=== PATIENT | female | born 1995 | race Caucasian/White ===

== ENCOUNTER 2024-01-25 02:00 | Emergency (ER) | payer MEDICAID ==
[~2024-01-25] VITALS: Ht 157.5 cm; Wt 52.0 kg
[2024-01-25 02:12] VITALS: BP 144/108; PULSE 87; RESP 20; O2SAT 98
== END 2024-01-25 04:24 | disposition left against medical advice (07) ==
LOC: ER 02:00
DX: S40.021A Contusion of right upper arm, initial encounter (principal); X58.XXXA Exposure to other specified factors, initial encounter; Y93.89 Activity, other specified; Y92.89 Other specified places as the place of occurrence of the external cause; Y99.8 Other external cause status

== ENCOUNTER 2024-06-28 13:58 | Inpatient (IN) | payer MEDICAID ==
[~2024-06-28] VITALS: Ht 157.5 cm; Wt 66.0 kg
[2024-06-28 14:52] LABS: Urine Bacteria None Seen /hpf (None Seen)
[2024-06-28 15:21] LABS: Urine Blood Negative /uL (Negative); Urine Clarity Ex.Turbid (Clear); Urine Color Dark-Orange (Yellow); Urine Mucus FEW (None Seen); Urine Protein, UAD 2+ (Negative); Urine Specific Gravity 1.036 (1.001-1.035); Urine Urobilinogen 12 mg/dL (Negative); Urine WBC 13 /hpf (0 - 5)
[2024-06-28 15:34] LABS: Basophils # (auto) 0 10 ^3/uL (0-0.2); Basophils % (auto) 0.2 % (0.0-2.0); Eosinophils # (auto) 0 10 ^3/uL (0-0.8); Hemoglobin 15.3 g/dL (12.2-16.2); Platelet Count (auto) 58 10^3/uL (140-450)
[2024-06-28 15:35] LABS: Hematocrit 44.3 % (36.0-46.0); Lymphocytes # (auto) 0.5 10 ^3/uL (0.4-5.4); Lymphocytes % (auto) 4.7 % (10.0-50.0); Mean Corpuscular Hemoglobin 41.2 pg (28.0-32.0); Mean Corpuscular Hgb Conc. 34.4 g/dL (32.0-36.0); Mean Corpuscular Volume 119.8 fL (80.0-100.0); Monocytes # (auto) 0.7 10 ^3/uL (0-1.3); Monocytes % (auto) 6.6 % (0.0-12.0); Neutrophils % (auto) 88.5 % (37.0-80.0); Nucleated Red Blood Cells % 0.2 %; Red Cell Distribution Width 14.5 % (11.8-14.3); White Blood Cell 11.3 10^3/uL (4.4-10.8)
[2024-06-28 15:52] LABS: Alanine Aminotransferase 93 U/L (7-40); Albumin 4.2 g/dL (3.2-4.8); Alkaline Phosphatase 253 U/L (46-116); Anion Gap 21 (5-15); Aspartate Aminotransferase 253 U/L (13-40); BUN/Creatinine Ratio 14.7 (10.0-20.0); Bilirubin, Total 4.2 mg/dL (0.2-1.0); Blood Urea Nitrogen 10 mg/dL (9-23); Calcium 9.3 mg/dL (8.7-10.4); Carbon Dioxide 17 mmol/L (20-31); Chloride 95 mmol/L (98-107); Glucose 111 mg/dL (74-106); Potassium 3.7 mmol/L (3.5-5.1); Sodium 133 mmol/L (136-145); Total Protein 7.3 g/dL (5.7-8.2)
[2024-06-28] MEDS: SODIUM CHLORIDE 0.9% 1,000 ML IV ONE (16:01)
[2024-06-28] MEDS: ONDANSETRON HCL 4 MG/2 ML VIAL IV ONE (16:05)
[2024-06-28 17:00] LABS: Macrocytosis Marked; Platelet Estimate Decreased; Stomatocytes Few
[2024-06-28] MEDS: cefTRIAXone 1GM/50ML D5W 50 ML IV ONE (18:12)
[2024-06-28 18:48] LABS: Urine Amorphous Crystal FEW /hpf (None Seen); Urine Bacteria FEW /hpf (None Seen); Urine Blood Negative /uL (Negative); Urine Clarity Turbid (Clear); Urine Color Orange (Yellow); Urine Mucus FEW (None Seen); Urine Protein, UAD 2+ (Negative); Urine Specific Gravity 1.035 (1.001-1.035); Urine Urobilinogen 8 mg/dL (Negative); Urine WBC 3 /hpf (0 - 5)
[2024-06-28 22:05] VITALS: PULSE 75; RESP 16; O2SAT 100
[2024-06-28] MEDS: LORazepam 2MG/ML-1ML VIAL IV SCH (22:15)
[2024-06-29] MEDS ORDERED: MORPHINE SULFATE INJ 2 MG/ml SYRG IV PRN
[2024-06-29] MEDS ORDERED: LORazepam 2MG/ML-1ML VIAL IV PRN (00:45)
[2024-06-29] MEDS ORDERED: FOLIC ACID 1 MG, MAGNESIUM SULF SDV 50% 8 MEQ, MULTIPLE VITAMIN 10 ML, THIAMINE INJ 100... INJ SCH ×2 (01:45→18:00)
[2024-06-29] MEDS: THIAMINE 100mg/ml INJ (200mg/2ml VIAL) IV ONE (01:52)
[2024-06-29] MEDS: LACTATED RINGER'S 1,000 ML IV SCH (01:52)
[2024-06-29 02:03] LABS: Amphetamine Screen, Urine Neg (NEGATIVE); Barbiturate Scree,Urine Neg (NEGATIVE); Benzodiazephine Screen, Urine Neg (NEGATIVE)
[2024-06-29 02:04] LABS: Cannabinoid Screen, Urine Pos (NEGATIVE); Cocaine Screen, Urine Neg (NEGATIVE); Opiate Scree,Urine Neg (NEGATIVE); Phencyclidine Screen, Urine Neg (NEGATIVE)
[2024-06-29 02:11] LABS: INR 1.37 (0.9-1.15); Partial Thromboplastin Time 25.4 SEC (24.5-34.5); Prothrombin Time 14.2 sec (9.3-11.8)
[2024-06-29 02:15] LABS: Triglycerides 111 mg/dL (< 150)
[2024-06-29 02:16] LABS: LDL Cholesterol 139 mg/dL (< 100); Magnesium 1.5 mg/dL (1.6-2.6)
[2024-06-29 02:17] LABS: Amylase 372 U/L (30-118); Blood Alcohol < 3.0 mg/dL (<10); Cholesterol 353 mg/dL (< 200); HDL Cholesterol 132 mg/dL (40-59)
[2024-06-29] MEDS: FOLIC ACID 1 MG in D5W 5% 50 ML INJ ONE (02:30)
[2024-06-29 03:03] LABS: Lipase 1958 U/L (12-53)
[2024-06-29 03:06] LABS: Folate (Folic Acid) 1.89 ng/mL (>5.38)
[2024-06-29 05:36] LABS: Basophils # (auto) 0 10 ^3/uL (0-0.2); Eosinophils # (auto) 0 10 ^3/uL (0-0.8); Monocytes # (auto) 0.5 10 ^3/uL (0-1.3); Neutrophils # (auto) 7.1 10 ^3/uL (1.6-8.6); Nucleated Red Blood Cells % 0.1 %
[2024-06-29 05:40] LABS: Basophils % (auto) 0.3 % (0.0-2.0); Hematocrit 39.2 % (36.0-46.0); Lymphocytes # (auto) 0.6 10 ^3/uL (0.4-5.4); Lymphocytes % (auto) 7.8 % (10.0-50.0); Mean Corpuscular Hemoglobin 42.5 pg (28.0-32.0); Mean Corpuscular Hgb Conc. 35.7 g/dL (32.0-36.0); Mean Corpuscular Volume 119.1 fL (80.0-100.0); Monocytes % (auto) 6.4 % (0.0-12.0); Neutrophils % (auto) 85.5 % (37.0-80.0); Platelet Count (auto) 34 10^3/uL (140-450); Red Blood Cells 3.29 10^6/uL (4.0-5.20); Red Cell Distribution Width 14.2 % (11.8-14.3); White Blood Cell 8.4 10^3/uL (4.4-10.8)
[2024-06-29 05:52] LABS: Alanine Aminotransferase 77 U/L (7-40); Alkaline Phosphatase 202 U/L (46-116); Anion Gap 13 (5-15); BUN/Creatinine Ratio 11.6 (10.0-20.0); Blood Urea Nitrogen 8 mg/dL (9-23); Calcium 8.6 mg/dL (8.7-10.4); Carbon Dioxide 23 mmol/L (20-31); Chloride 95 mmol/L (98-107); Glucose 130 mg/dL (74-106); Potassium 3.8 mmol/L (3.5-5.1); Sodium 131 mmol/L (136-145)
[2024-06-29 05:53] LABS: Albumin 3.9 g/dL (3.2-4.8); Aspartate Aminotransferase 204 U/L (13-40); Bilirubin, Total 5.2 mg/dL (0.2-1.0)
[2024-06-29 05:54] LABS: Total Protein 6.5 g/dL (5.7-8.2)
[2024-06-29] MEDS: ONDANSETRON HCL 4 MG/2 ML VIAL IV PRN (06:02)
[2024-06-29] MEDS: MORPHINE SULFATE INJ 2 MG/ml SYRG IV PRN (06:08)
[2024-06-29] MEDS: MAGNESIUM SULFATE 1GM/100ML 100 ML IV SCH (06:55)
[2024-06-29 08:33] VITALS: BP 127/101; PULSE 98; RESP 20; O2SAT 97
[2024-06-29 08:54] LABS: Macrocytosis Marked; Platelet Estimate Decreased
[2024-06-29] MEDS: FOLIC ACID 1 MG, MAGNESIUM SULF SDV 50% 8 MEQ, MULTIPLE VITAMIN 10 ML, THIAMINE INJ 100... INJ ONE (09:00)
[2024-06-29 09:26] LABS: Free T4 (Free Thyroxine) 1.1 ng/dL (0.89-1.76)
[2024-06-29 09:27] LABS: T3 Total 0.8 ng/mL (0.60-1.81)
[2024-06-29 11:05] LABS: Hepatitis B Surface Antigen Negative (Negative)
[2024-06-29 11:27] LABS: Hepatitis A Ab IgM Negative
[2024-06-29 11:28] LABS: Hepatitis B Core IgM Negative; Hepatitis C Antibody Negative (Negative)
[2024-06-29 12:30] VITALS: BP 134/98; PULSE 89; RESP 18; TEMP 98.3; O2SAT 99
[2024-06-29 14:10] LABS: Basophils # (auto) 0 10 ^3/uL (0-0.2); Basophils % (auto) 0.1 % (0.0-2.0); Eosinophils # (auto) 0 10 ^3/uL (0-0.8); Eosinophils % (auto) 0.3 % (0.0-7.0); Hematocrit 39.6 % (36.0-46.0); Hemoglobin 14.1 g/dL (12.2-16.2); Lymphocytes % (auto) 12.5 % (10.0-50.0); Mean Corpuscular Hemoglobin 42.1 pg (28.0-32.0); Mean Corpuscular Hgb Conc. 35.6 g/dL (32.0-36.0); Mean Corpuscular Volume 118.5 fL (80.0-100.0); Monocytes # (auto) 0.4 10 ^3/uL (0-1.3); Monocytes % (auto) 5.6 % (0.0-12.0); Neutrophils # (auto) 6.3 10 ^3/uL (1.6-8.6); Neutrophils % (auto) 81.5 % (37.0-80.0); Nucleated Red Blood Cells % 0.1 %; Red Blood Cells 3.34 10^6/uL (4.0-5.20); White Blood Cell 7.7 10^3/uL (4.4-10.8)
[2024-06-29 14:11] LABS: Platelet Count (auto) 36 10^3/uL (140-450)
[2024-06-29] MEDS ORDERED: chlordiazePOXIDE HCL 25 MG CAP PO PRN (19:00)
[2024-06-29 20:00] VITALS: PULSE 107; RESP 18; O2SAT 98
[2024-06-29 21:00] VITALS: BP 129/98; PULSE 107; RESP 18; TEMP 98.3; O2SAT 98
[2024-06-29] MEDS: SODIUM CHLORIDE 0.9% 1,000 ML IV ONE (22:15)
[2024-06-30] VITALS (8 sets, daily range): BP systolic 112–134; BP diastolic 81–96; PULSE 65–113; RESP 16–20; TEMP 98.1–99.2; O2SAT 96–100
[2024-06-30 08:18] LABS: Alanine Aminotransferase 80 U/L (7-40); Albumin 3.2 g/dL (3.2-4.8); Alkaline Phosphatase 203 U/L (46-116); Anion Gap 8 (5-15); Aspartate Aminotransferase 246 U/L (13-40); Calcium 8.2 mg/dL (8.7-10.4); Carbon Dioxide 24 mmol/L (20-31); Chloride 102 mmol/L (98-107); Glucose 106 mg/dL (74-106); Potassium 3.4 mmol/L (3.5-5.1); Sodium 134 mmol/L (136-145); Total Protein 5.5 g/dL (5.7-8.2)
[2024-06-30 08:19] LABS: BUN/Creatinine Ratio 9.6 (10.0-20.0); Blood Urea Nitrogen < 5 mg/dL (9-23)
[2024-06-30] MEDS ORDERED: LACTATED RINGER'S 1,000 ML IV SCH (08:45)
[2024-06-30 08:48] LABS: Lipase 352 U/L (12-53)
[2024-06-30 09:03] LABS: Basophils # (auto) 0 10 ^3/uL (0-0.2); Basophils % (auto) 0.1 % (0.0-2.0); Eosinophils # (auto) 0.1 10 ^3/uL (0-0.8); Eosinophils % (auto) 1.2 % (0.0-7.0); Hematocrit 34.6 % (36.0-46.0); Hemoglobin 12.3 g/dL (12.2-16.2); Lymphocytes # (auto) 0.8 10 ^3/uL (0.4-5.4); Lymphocytes % (auto) 12.6 % (10.0-50.0); Mean Corpuscular Hemoglobin 42.2 pg (28.0-32.0); Mean Corpuscular Hgb Conc. 35.6 g/dL (32.0-36.0); Mean Corpuscular Volume 118.5 fL (80.0-100.0); Monocytes # (auto) 0.4 10 ^3/uL (0-1.3); Monocytes % (auto) 7.1 % (0.0-12.0); Neutrophils # (auto) 4.8 10 ^3/uL (1.6-8.6); Nucleated Red Blood Cells % 0.3 %; Platelet Count (auto) 38 10^3/uL (140-450); Red Blood Cells 2.92 10^6/uL (4.0-5.20); Red Cell Distribution Width 14.1 % (11.8-14.3); White Blood Cell 6.1 10^3/uL (4.4-10.8)
[2024-06-30 12:06] LABS: Anti-Nuclear Antibody Direct Negative (Negative)
[2024-06-30] MEDS: POTASSIUM EFFERVESENT TAB 25 MEQ PO ONE (15:05)
[2024-06-30] MEDS: cefTRIAXone 1GM/50ML D5W 50 ML IV ONE (15:06)
[2024-06-30] MEDS: metroNIDAZOLE 500MG/100ML 100 ML IV SCH (15:55)
[2024-06-30] MEDS: LACTATED RINGER'S 1,000 ML IV SCH (17:36)
[2024-06-30] MEDS: FOLIC ACID 1 MG, MAGNESIUM SULF SDV 50% 8 MEQ, MULTIPLE VITAMIN 10 ML, THIAMINE INJ 100... INJ SCH (18:02)
[2024-07-01 01:00] VITALS: BP 134/104; PULSE 92; RESP 18; TEMP 98.9; O2SAT 96
[2024-07-01 05:00] VITALS: BP 132/98; PULSE 86; RESP 18; TEMP 98.5; O2SAT 97
[2024-07-01 06:14] LABS: Basophils # (auto) 0 10 ^3/uL (0-0.2); Basophils % (auto) 0.7 % (0.0-2.0); Eosinophils # (auto) 0.1 10 ^3/uL (0-0.8); Eosinophils % (auto) 1.9 % (0.0-7.0); Hematocrit 33.1 % (36.0-46.0); Hemoglobin 11.8 g/dL (12.2-16.2); Lymphocytes # (auto) 0.8 10 ^3/uL (0.4-5.4); Lymphocytes % (auto) 22.9 % (10.0-50.0); Mean Corpuscular Hemoglobin 42.7 pg (28.0-32.0); Mean Corpuscular Hgb Conc. 35.7 g/dL (32.0-36.0); Monocytes # (auto) 0.3 10 ^3/uL (0-1.3); Monocytes % (auto) 7.1 % (0.0-12.0); Neutrophils # (auto) 2.4 10 ^3/uL (1.6-8.6); Neutrophils % (auto) 67.4 % (37.0-80.0); Nucleated Red Blood Cells % 0.4 %; Platelet Count (auto) 51 10^3/uL (140-450); Red Blood Cells 2.77 10^6/uL (4.0-5.20); Red Cell Distribution Width 14.1 % (11.8-14.3); White Blood Cell 3.6 10^3/uL (4.4-10.8)
[2024-07-01 06:16] LABS: Mean Corpuscular Volume 119.5 fL (80.0-100.0)
[2024-07-01 06:25] LABS: Chloride 105 mmol/L (98-107); Potassium 3.5 mmol/L (3.5-5.1); Sodium 135 mmol/L (136-145)
[2024-07-01 06:26] LABS: Anion Gap 6 (5-15); Calcium 8.6 mg/dL (8.7-10.4); Carbon Dioxide 24 mmol/L (20-31)
[2024-07-01 06:31] LABS: Glucose 102 mg/dL (74-106)
[2024-07-01 06:40] LABS: BUN/Creatinine Ratio 10.4 (10.0-20.0); Blood Urea Nitrogen < 5 mg/dL (9-23)
[2024-07-01 07:30] VITALS: PULSE 65; RESP 16; O2SAT 98
[2024-07-01 09:00] VITALS: BP 138/101; PULSE 80; RESP 19; TEMP 97.2; O2SAT 98
[2024-07-01] MEDS: cefTRIAXone 1GM/50ML D5W 50 ML IV SCH (10:30)
[2024-07-01 13:00] VITALS: BP 134/96; PULSE 66; RESP 19; TEMP 99.1; O2SAT 99
[2024-07-01 17:00] VITALS: BP 126/93; PULSE 83; RESP 19; TEMP 99.1; O2SAT 97
[2024-07-01] MEDS ORDERED: ATORVASTATIN 20 MG TAB PO SCH (22:00)
== END 2024-07-01 19:00 | disposition left against medical advice (07) | DRG 282 ==
LOC: ER 13:58 → OVERFLOW 23:53 → CENTRAL 06-29 08:05
PROVIDERS: ADMIT Internal Medicine; ATTEND Internal Medicine
DX: K85.20 Alcohol induced acute pancreatitis without necrosis or infection (principal); D69.6 Thrombocytopenia, unspecified; K74.60 Unspecified cirrhosis of liver; K76.0 Fatty (change of) liver, not elsewhere classified; F10.139 Alcohol abuse with withdrawal, unspecified; Z53.29 Procedure and treatment not carried out because of patient's decision for other reasons; E87.1 Hypo-osmolality and hyponatremia; F12.10 Cannabis abuse, uncomplicated; D53.9 Nutritional anemia, unspecified; E83.42 Hypomagnesemia; E78.5 Hyperlipidemia, unspecified; D75.89 Other specified diseases of blood and blood-forming organs; Z79.899 Other long term (current) drug therapy; Y90.9 Presence of alcohol in blood, level not specified
CPT/HCPCS: 36415; 71045; 74176; 76705; 80048; 80053; 80061; 80074; 80307; 80320; 81001; 81025; 82150; 82607; 82746; 83690; 83735; 83930; 84439; 84443; 84480; 84702; 85025; 85610; 85730; 86038; 86703; 93005; G0378; J2405; J3490; J7060

== ENCOUNTER 2024-07-23 16:00 | Emergency (ER) | payer MEDICAID ==
[~2024-07-23] VITALS: Ht 157.5 cm; Wt 60.2 kg
--- NOTE | 2024-07-23 16:22 | ED.PDOC ---
Musculoskeletal HPI Comments 29y F who presents to the ED for chief complaint of upper extremity pain. Pt states she has been having L upper extremity pain by her L arm and shoulder since earlier this AM. Pt states she was at home and approx at 0300 this AM, pt had mechanical fall. Pt states she heard "something snap and crack" as she fell on her R arm and shoulder. Pt states she was unable to move her R shoulder and came to the ED. Pt in the ED, she is having pain by R shoulder and arm, rating the pain 7/10, constant, non-radiating, with associated exacerbation of pain with movement and no relieving factors. Pt has noted swelling and erythema by the R upper extremity. Pt has no associated symptoms. Pt states she tried ibupro fen, morphine and "vodka" but states she still was in pain and came to the ED. Pt otherwise denies any other symptoms at this time. Chief Complaint: upper extremity pain Time Seen by MD: 16:18 Primary Care Provider: NONE Reviewed Notes: Nurses Notes, Medications, Allergies Allergies: Coded Allergies: NO KNOWN ALLERGIES (Unverified , 04/13/15) Home Meds Active Scripts Hydrocodone-Acetaminophen (Hydrocodone Bitartrate/AC 5-325 mg) 1 Tab Tab, 1 TAB PO Q8HP PRN for 7 Days, #21 TAB Prov:ADI MCKEON MD 07/23/24 Information Source: Patient Mode of Arrival: Ambulatory Brought in by: mother Location: Right Extremity Location: Arm, Shoulder Timing: Hours Prehospital treatment: None Severity: Moderate Able to Move Extremity: No Bear Weight: Limited Pain: Severe Mechanism: Spontaneous Circumstances: Fall Onset of Symptoms: Spontaneous, After Trauma Symptoms: Swelling, Pain, Erythema DVT Risk Factors: NONE Last Tetanus: Unknown Associated signs and symptoms: Shoulder pain, Arm pain, Wrist pain Past Medical History PAST MEDICAL HISTORY: HTN, Seizures 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 History Family History Family History: Unknown Family History (Other): SLE Social History Smoker: Non-Smoker Alcohol: Heavy Drugs: Marijuana Lives In: Home Constitutional: denies: chills, diaphoresis, fatigue, fever, malaise, sweats, weakness, others EENTM: denies: blurred vision, double vision, ear bleeding, ear discharge, ear drainage, ear pain, ear ringing, eye pain, eye redness, hearing loss, mouth pain, mouth swelling, nasal discharge, nose bleeding, nose congestion, nose pain, photophobia, tearing, throat pain, throat swelling, voice changes, others Respiratory: denies: cough, hemoptysis, orthopnea, SOB at rest, shortness of breath, SOB with excertion, stridor, wheezing, others Cardiovascular: denies: chest pain, dizzy spells, diaphoresis, Dyspnea on exertion, edema, irregular heart beat, left arm pain, lightheadedness, pal pitations, PND, syncope, others Gastrointestinal: denies: abdomen distended, abdominal pain, blood streaked bowels, constipated, diarrhea, dysphagia, difficulty swallowing, hematemesis, melena, nausea, poor appetite, poor fluid intake, rectal bleeding, rectal pain, vomiting, others Genitourinary: denies: abnormal vagina bleeding, burning, dyspareunia, dysuria, flank pain, frequency, hematuria, incontinence, pain, , vagina discharge, urgency, others Neurological: denies: dizziness, fainting, headache, left sided numbness, left sided weakness, numbness, paresthesia, pre-existing deficit, right sided numbness, right sided weakness, seizure, speech problems, tingling, tremors, weakness, others Musculoskeletal: reports: joint pain (R arm and shoulder), muscle pain (R arm and shoulder); denies: back pain, gout, joint swelling, muscle stiffness, neck pain, others Integumetry: denies: bruises, change in color, change in hair/nails, dryness, laceration, lesions, lumps, rash, wounds, others Allergic/Immunocompromised: denies: Difficulty Healing, Frequent Infections, Hives, Itching, others Hematologic/Lymphatic: denies: anemia, blood clots, easy bleeding, easy bruising, swollen glands, others Endocrine: denies: excessive hunger, excessive sweating, excessive thirst, excessive urination, flushing, intolerance to cold, intolerance to heat, unexplained weight gain, unexplained weight loss, others Psychiatric: denies: anxiety, bipolar disorder, depression, hopeless, panic disorder, schizophrenia, sleepless, suicidal, others All Other Systems: Reviewed and Negative Physical Exam General Appearance: Moderate Distress HEENT: Normal ENT Inspection, Pharynx Normal, TMs Normal Neck: Full Range of Motion, Non-Tender, Normal, Normal Inspection Respiratory: Chest Non-Tender, Lungs Clear, No Accessory Muscle Use, No Respiratory Distress, Normal Breath Sounds Cardiovascular: No Edema, No JVD, No Murmur, No Gallop, Normal Peripheral Pulses, Regular Rate/Rhythm Breast Exam: Deferred Gastrointestinal: No Organomegaly, Non Tender, No Pulsatile Mass, Normal Bowel Sounds, Soft Genitalia: Deferred Pelvic: Deferred Rectal: Deferred Extremities: No calf tenderness, Normal capillary refill, Normal inspection, Normal range of motion, Non-tender, No pedal edema Musculoskeletal : Location: Right Extremity Location: Arm, Shoulder Apperance: Limited ROM, Tenderness: Moderate Neurologic: Alert, senior marketing manager II-XII nml as Tested, No Motor Deficits, Normal Affect, Normal Mood, No Sensory Deficits Cerebellar Function: Normal Reflexes: Normal Skin: Dry, Normal Color, Warm Lymphatic: No Adenopathy Was a procedure done? Was a procedure done?: No Differential Diagnosis EXT Differential Diagnosis: Fracture, Sprain, Dislocation, Contusion, Strain, Arthritis X-Ray, Labs, Meds, VS Vital Signs Date Time Temp Pulse Resp B/P (MAP) Pulse Ox O2 Delivery O2 Flow Rate FiO2 07/23/24 16:30 98.7 93 18 130/93 (105) 98 X-ray of the right shoulder shows: FINDINGS/IMPRESSION: There is a fracture through the greater tuberosity of the proximal right humerus as well as through the neck of the humerus. These appear minimally displaced. X-ray of the right elbow is negative for any fracture. The patient was placed in the sling The patient was given [place] here in the emergency department's The patient was given a prescription for [place] The patient was to follow up with the orthopedic surgeon. The patient is being discharged at this time. Images Reviewed?: Images reviewed and evaluated by me Time of 1ST Reevaluation: 16:50 Reevaluation 1ST: Unchanged Patient Education/Counseling: Diagnosis, Treatment, Prognosis, Need For Follow Up Family Education/Counseling: Diagnosis, Treatment, Prognosis, Need For Follow Up Departure 1 Departure Time of Disposition: 17:13 Impression: Primary Impression: Closed right humeral fracture Qualified Codes: S42.301A - Unspecified fracture of shaft of humerus, right arm, initial encounter for closed fracture Disposition: 01 HOME / SELF CARE / HOMELESS Condition: Fair e-Prescriptions Hydrocodone-Acetaminophen (Hydrocodone Bitartrate/AC 5-325 mg) 1 Tab Tab 1 TAB PO Q8HP PRN for 7 Days, #21 TAB Prov: ADI MCKEON MD 07/23/24 Discharged With: Self Critical Care Note Critical Care Time?: No Stability Stability form required: No Heart Score Heart Score: Heart Score Response (Comments) Value History N/A 0 EKG N/A 0 Age N/A 0 Risk Factors N/A 0 Troponin N/A 0 Total 0 I personally scribed for ADI MCKEON MD ([email or web address]) on 07/23/24 at 16:22. Electronically submitted by Beverly Villanueva ([email or web address]). ADI MCKEON MD Jul 23, 2024 16:22
--- NOTE | 2024-07-23 16:57 | DVH ---
CLINICAL INDICATION: trauma TECHNIQUE: 2 radiographic views of the right shoulder were obtained. Comparison: None FINDINGS/IMPRESSION: There is a fracture through the greater tuberosity of the proximal right humerus as well as through t he neck of the humerus. These appear minimally displaced.
--- NOTE | 2024-07-23 17:02 | DVH ---
CLINICAL INDICATION: trauma TECHNIQUE: 3 radiographic views of the right elbow were obtained. Comparison: None FINDINGS/IMPRESSION: There is no evidence of acute fracture or dislocation. The visualized joint space is well maintained. The alignment is anatomical. There is no radiopaque foreign body.
[2024-07-23] MEDS ORDERED: HYDR-4902 PO (17:10)
[2024-07-23 17:51] VITALS: BP 131/69; PULSE 75; RESP 16; TEMP 98.5; O2SAT 98
[2024-07-23] MEDS: HYDROcodone-ACET 10/325MG TAB PO ONE (17:54)
== END 2024-07-23 17:54 | disposition home or self-care (01) ==
LOC: ER 16:00
DX: S42.294A Other nondisplaced fracture of upper end of right humerus, initial encounter for closed fracture (principal); I10 Essential (primary) hypertension; F12.90 Cannabis use, unspecified, uncomplicated; F10.10 Alcohol abuse, uncomplicated; Z98.890 Other specified postprocedural states; W18.39XA Other fall on same level, initial encounter; Y93.89 Activity, other specified; Y92.89 Other specified places as the place of occurrence of the external cause; Y99.8 Other external cause status
CPT/HCPCS: 73030; 73080

== ENCOUNTER 2024-07-28 19:47 | Emergency (ER) | payer MEDICAID ==
[~2024-07-28] VITALS: Ht 157.5 cm; Wt 59.6 kg
[~2024-07-28 19:47] MED LIST: HYDR-4902 PO
--- NOTE | 2024-07-28 20:17 | ED.PDOC ---
Musculoskeletal HPI Comments 29-year-old female who came to ER for right shoulder pain. Patient was involved in a ground level fall last July 23, and there is a fracture through the greater tuberosity of the proximal right humerus as well as through the neck of the humerus. These appear minimally displaced. Patient was advised to follow up with orthopedic surgeon but was unable to. Patient coming in for follow up. Chief Complaint: Upper extremity Time Seen by MD: 20:16 Primary Care Provider: NONE Reviewed Notes: Nurses Notes Allergies: Coded Allergies: NO KNOWN ALLERGIES (Unverified , 04/13/15) Home Meds Active Scripts Hydrocodone-Acetaminophen (Hydrocodone Bitartrate/AC 5-325 mg) 1 Tab Tab, 1 TAB PO Q8HP PRN for 7 Days, #21 TAB Prov:ADI MCKEON MD 07/23/24 Information Source: Patient Mode of Arrival: Ambulatory Location: Right Extremity Location: Shoulder Timing: Days Prehospital treatment: None Severity: Moderate Able to Move Extremity: No Bear Weight: Limited Pain: Moderate Hand Dominance: Right Mechanism: FOOSH Circumstances: Fall Onset of Symptoms: After Trauma Symptoms: Swelling, Pain Associated signs and symptoms: Shoulder pain (Right) Past Medical History PAST MEDICAL HISTORY: HTN, Seizures 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 SHOP WELDER History Family History Family History: Unknown Family History (Other): SLE Social History Smoker: Non-Smoker Alcohol: Occasionally Drugs: Marijuana Lives In: Home Constitutional: denies: chills, diaphoresis, fatigue, fever, malaise, sweats, weakness, others EENTM: denies: blurred vision, double vision, ear bleeding, ear discharge, ear drainage, ear pain, ear ringing, eye pain, eye redness, hearing loss, mouth pain, mouth swelling, nasal discharge, nose bleeding, nose congestion, nose pa in, photophobia, tearing, throat pain, throat swelling, voice changes, others Respiratory: denies: cough, hemoptysis, orthopnea, SOB at rest, shortness of breath, SOB with excertion, stridor, wheezing, others Cardiovascular: denies: chest pain, dizzy spells, diaphoresis, Dyspnea on exertion, edema, irregular heart beat, left arm pain, lightheadedness, palpitations, PND, syncope, others Gastrointestinal: denies: abdomen distended, abdominal pain, blood streaked bowels, constipated, diarrhea, dysphagia, difficulty swallowing, hematemesis, melena, nausea, poor appetite, poor fluid intake, rectal bleeding, rectal pain, vomiting, others Genitourinary: denies: abnormal vagina bleeding, burning, dyspareunia, dysuria, flank pain, frequency, hematuria, incontinence, pain, , vagina discharge, urgency, others Neurological: denies: dizziness, fainting, headache, left sided numbness, left sided weakness, numbness, paresthesia, pre-existing deficit, right sided numbness, right sided weakness, seizure, speech problems, tingling, tremors, weakness, others Musculoskeletal: reports: joint pain (Right shoulder); denies: back pain, gout, joint swelling, muscle pain, muscle stiffness, neck pain, others Integumetry: denies: bruises, change in color, change in hair/nails, dryness, laceration, lesions, lumps, rash, wounds, others Allergic/Immunocompromised: denies: Difficulty Healing, Frequent Infections, Hives, Itching, others Hematologic/Lymphatic: denies: anemia, blood clots, easy bleeding, easy bruising, swollen glands, others Endocrine: denies: excessive hunger, excessive sweating, excessive thirst, excessive urination, flushing, intolerance to cold, intolerance to heat, unexplained weight gain, unexplained weight loss, others Psychiatric: denies: anxiety, bipolar disorder, depression, hopeless, panic disorder, schizophrenia, sleepless, suicidal, others Physical Exam General Appearance: No Apparent Distress, Normal HEENT: Normal ENT Inspection, Pharynx Normal, TMs Normal Neck: Full Range of Motion, Non-Tender, Normal, Normal Inspection Respiratory: Chest Non-Tender, Lungs Clear, No Accessory Muscle Use, No Respiratory Distress, Normal Breath Sounds Cardiovascular: No Edema, No JVD, No Murmur, No Gallop, Normal Peripheral Pulses, Regular Rate/Rhythm Breast Exam: Deferred Gastrointestinal: No Organomegaly, Non Tender, No Pulsatile Mass, Normal Bowel Sounds, Soft Genitalia: Deferred Pelvic: Deferred Rectal: Deferred Extremities: No calf tenderness, Normal capillary refill, Normal inspection, Normal range of motion, Non-tender, No pedal edema Musculoskeletal : Apperance: Normal Neurologic: Alert, coke inspector II-XII nml as Tested, No Motor Deficits, Normal Affect, Normal Mood, No Sensory Deficits Cerebellar Function: Normal Reflexes: Normal Skin: Bruises (Right upper arm), Dry, Warm Lymphatic: No Adenopathy Was a procedure done? Was a procedure done?: No Differential Diagnosis EXT Differential Diagnosis: Fracture, Sprain, Dislocation X-Ray, Labs, Meds, VS Vital Signs Date Time Temp Pulse Resp B/P (MAP) Pulse Ox O2 Delivery O2 Flow Rate FiO2 07/28/24 20:06 98.4 103 18 126/96 (106) 97 Time of 1ST Reevaluation: 20:14 Reevaluation 1ST: Unchanged Patient Education/Counseling: Diagnosis, Treatment Family Education/Counseling: No Family Present Departure 1 Departure Time of Disposition: 20:42 (Patient has a healing proximal humerus fracture. We will discharge patient with orthopedic follow up) Impression: Primary Impression: Proximal humerus fracture Qualified Codes: S42.294D - Other nondisplaced fracture of upper end of right humerus, subsequent encounter for fracture with routine healing Disposition: 01 HOME / SELF CARE / HOMELESS Condition: Stable Additional Instructions: You have a proximal humerus fracture. You should keep your arm in a sling. You should follow up with Orthopedic surgery next week. Please call for an appointment. For pain you can take the followinam: Ibuprofen 400mg with food Noon: Acetaminophen 1000mg 4pm: Ibuprofen 400mg with food 8pm: Acetaminophen 1000mg Discharged With: Self Critical Care Note Critical Care Time?: No Stability Stability form required: No Heart Score Heart Score: Heart Score Response (Comments) Value History N/A 0 EKG N/A 0 Age N/A 0 Risk Factors N/A 0 Troponin N/A 0 Total 0 I personally scribed for JERO PINEDA MD ([email or web address]) on 07/28/24 at 20:17. Electronically submitted by Allen Lozano ([email or web address]). JERO PINEDA MD Jul 28, 2024 20:17
--- NOTE | 2024-07-28 20:44 | DVH ---
CLINICAL INDICATION: s/p proximal humerus fracture with increasing pain TECHNIQUE: 2 radiographic views of the right humerus were obtained. Comparison: XY R SHOULDER 2+ VIEW XRAY on DOS: 07/23/24 FINDINGS/IMPRESSION: Fracture through the greater tuberosity of the proximal right humerus with minimally displaced fractu re through the anatomic neck. The visualized joint space is well maintained. The alignment is anatomical. There is no radiopaque foreign body.
[2024-07-28 21:09] VITALS: BP 127/75; PULSE 96; RESP 18; TEMP 98.1; O2SAT 99
== END 2024-07-28 21:20 | disposition home or self-care (01) ==
LOC: ER 19:47
DX: S42.291D Other displaced fracture of upper end of right humerus, subsequent encounter for fracture with routine healing (principal); I10 Essential (primary) hypertension; F15.90 Other stimulant use, unspecified, uncomplicated; Z98.890 Other specified postprocedural states; Z79.899 Other long term (current) drug therapy; X58.XXXD Exposure to other specified factors, subsequent encounter
CPT/HCPCS: 73060

== ENCOUNTER 2024-12-08 08:32 | Emergency (ER) | payer MEDICAID ==
[~2024-12-08] VITALS: Ht 152.4 cm; Wt 57.0 kg
--- NOTE | 2024-12-08 08:49 | ED.PDOC ---
History of Present Illness(SKN HPI Comments 29Y F with PMHx lupus presents to ED for chief complaint rash [id number]. Pt reports small, circular rash on rt elbow, lateral lt thigh, rt medial thigh, upper lip, and eyelids. Pt believes she may have an insect bite. No one else at home has the rash. Pt states rash is spreading. No other symptoms reported. Time Seen by MD: 08:37 Primary Care Provider: NONE History of Present Illness: Nurses Notes, Medications, Allergies Allergies: Coded Allergies: NO KNOWN ALLERGIES (Unverified , 04/13/15) Home Meds Active Scripts Hydrocodone-Acetaminophen (Hydrocodone Bitartrate/AC 5-325 mg) 1 Tab Tab, 1 TAB PO Q8HP PRN for 7 Days, #21 TAB Prov:ADI MCKEON MD 07/23/24 Information Source: Patient Mode of Arrival: Ambulatory Severity: Mild Timing: Days Duration: Since onset Prehospital treatment: None Location: Eyes, Lips, Other (bilateral thigh) Mechanism: Spontaneous Onset Occurence: Indoors Object: None Condition of Object: None Retained Foreign Body: No Wound Type: Other Immunization Status of Animal: NA Tetanus: UTD History of: Immunosuppression Associated Signs and Symptoms: Redness, Other Past Medical History PAST MEDICAL HISTORY: HTN, Seizures Past Medical History (Other): Lupus 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: No Pertinent AVIONICS 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 Family History Family History: Unknown Family History (Other): SLE Social History Smoker: Non-Smoker Alcohol: Occasionally Drugs: Marijuana Lives In: Home Constitutional: denies: chills, diaphoresis, fatigue, fever, malaise, sweats, weakness, others EENTM: denies: blurred vision, double vision, ear bleeding, ear discharge, ear drainage, ear pain, ear ringing, eye pain, eye redness, hearing loss, mouth pain, mouth swelling, nasal discharge, nose bleeding, nose congestion, nose pain, photophobia, tearing, throat pain, throat swelling, voice changes, others Respiratory: denies: cough, hemoptysis, orthopnea, SOB at rest, shortness of breath, SOB with excertion, stridor, wheezing, others Cardiovascular: denies: chest pain, dizzy spells, diaphoresis, Dyspnea on exer tion, edema, irregular heart beat, left arm pain, lightheadedness, palpitations, PND, syncope, others Gastrointestinal: denies: abdomen distended, abdominal pain, blood streaked bowels, constipated, diarrhea, dysphagia, difficulty swallowing, hematemesis, melena, nausea, poor appetite, poor fluid intake, rectal bleeding, rectal pain, vomiting, others Genitourinary: denies: abnormal vagina bleeding, burning, dyspareunia, dysuria, flank pain, frequency, hematuria, incontinence, pain, , vagina discharge, urgency, others Neurological: denies: dizziness, fainting, headache, left sided numbness, left sided weakness, numbness, paresthesia, pre-existing deficit, right sided numbness, right sided weakness, seizure, speech problems, tingling, tremors, weakness, others Musculoskeletal: denies: back pain, gout, joint pain, joint swelling, muscle pain, muscle stiffness, neck pain, others Integumetry: reports: rash (rt elbow, bilateral thigh, eyelids, top lip); denies: bruises, change in color, change in hair/nails, dryness, laceration, lesions, lumps, wounds, others Allergic/Immunocompromised: denies: Difficulty Healing, Frequent Infections, Hives, Itching, others Hematologic/Lymphatic: denies: anemia, blood clots, easy bleeding, easy bruising, swollen glands, others Endocrine: denies: excessive hunger, excessive sweating, excessive thirst, excessive urination, flushing, intolerance to cold, intolerance to heat, unexplained weight gain, unexplained weight loss, others Psychiatric: denies: anxiety, bipolar disorder, depression, hopeless, panic disorder, schizophrenia, sleepless, suicidal, others All Other Systems: Reviewed and Negative Physical Exam General Appearance: No Apparent Distress, Normal HEENT: Eye Lid (L) (heliotrope type rash), Eye Lid (R) (heliotrope type rash), Pharynx Normal, TMs Normal Neck: Full Range of Motion, Non-Tender, Normal, Normal Inspection Respiratory: Chest Non-Tender, Lungs Clear, No Accessory Muscle Use, No Respiratory Distress, Normal Breath Sounds Cardiovascular: No Edema, No JVD, No Murmur, No Gallop, Normal Peripheral Pulses, Regular Rate/Rhythm Breast Exam: Deferred Gastrointestinal: No Organomegaly, Non Tender, No Pulsatile Mass, Normal Bowel Sounds, Soft Genitalia: Deferred Pelvic: Deferred Rectal: Deferred Extremities: No calf tenderness, Normal capillary refill, Normal inspection, Normal range of motion, Non-tender, No pedal edema Musculoskeletal : Apperance: Normal Neurologic: Alert, media marketing director II-XII nml as Tested, No Motor Deficits, Normal Affect, Normal Mood, No Sensory Deficits Cerebellar Function: Normal Reflexes: Normal Skin: Dry, Rash (plaques of slightly raised, dry, scaly rash which are well circumscribed on right elbow and left inner thigh. pt also has mild red hue of the upper lids), Warm, Other (dry, well circumscribed, scaly, lightly raised rash on rt elbow, one on lt lateral thigh, and one on rt medial thigh) Lymphatic: No Adenopathy Was a procedure done? Was a procedure done?: No Differential Diagnosis (INTG) Differential Diagnosis: Abrasion, Cellulitis, Insect Envenomation, Other (lupus, dermatophytosis) Differential Diagnosis: Atopic dermatitis, Candidiasis, Cellulitis, Contact Dermatitis, Drug Reaction, Erythema multiforme, Erysipelas, Herpes Zoster/Simplex, Impetigo, Pediculosis (lice), Pityriasis rosea, Psoriasis, Scabies, Tinea, Urticaria, Viral exanthema X-Ray, Labs, Meds, VS Vital Signs Date Time Temp Pulse Resp B/P (MAP) Pulse Ox O2 Delivery O2 Flow Rate FiO2 12/08/24 08:45 98.1 88 18 145/106 (119) 98 98.1 Time of 1ST Reevaluation: 09:07 Reevaluation 1ST: Unchanged Patient Education/Counseling: Diagnosis, Treatment, Prognosis, Need For Follow Up Family Education/Counseling: No Family Present Additional Information Previous visit documents reviewed: None The following tests were ordered, and results were reviewed by me: None Additional Information was gathered from interviewing the following independent historians: None I reviewed and agreed with the following test results read by other providers: None I discussed treatment and results with medical personnel and: Patient although the upper lid rash appears to be classic lupus rash, pt has no other symptoms of a flared up. she does have other rashes which are fungal in appearance, so i will not start prednisone for the lupus. i will treat the fungal infection first. after the fungal rash is resolved, she will follow up with her doctor for her lupus Departure 1 Departure Time of Disposition: 09:00 Impression: Primary Impression: Dermatophytosis Additional Impression: Lupus Disposition: HOME / SELF CARE / HOMELESS Condition: Good Additional Instructions: after treatment of rash of the arm and leg, follow up with your doctor for the eye lid rash. do not use fungal cream on eye lids e-Prescriptions Ketoconazole (Ketoconazole) 2 % Cre 1 APPLIC TOP BID for 14 Days, #60 GRAMS 1 Refill Prov: ERNIE JUSTICE MD 12/08/24 Discharged With: Self Critical Care Note Critical Care Time?: No Stability Stability form required: No Heart Score Heart Score: Heart Score Response (Comments) Value History N/A 0 EKG N/A 0 Age N/A 0 Risk Factors N/A 0 Troponin N/A 0 Total 0 I personally scribed for ERNIE JUSTICE MD ([email or web address]) on 12/08/24 at 08:49. Electronically submitted by Kimberley Godfrey ([email or web address]). I personally scribed for ERNIE JUSTICE MD ([email or web address]) on 12/08/24 at 08:50. Electronically submitted by Kimberley Godfrey ([email or web address]). ERNIE JUSTICE MD Dec 08, 2024 08:49
[2024-12-08] MEDS ORDERED: KETO2CRE4 TOP (09:01)
[2024-12-08 09:03] VITALS: BP 136/98; PULSE 88; RESP 18; TEMP 98.1; O2SAT 98
== END 2024-12-08 09:13 | disposition home or self-care (01) ==
LOC: ER 08:32
DX: B35.9 Dermatophytosis, unspecified (principal); M32.9 Systemic lupus erythematosus, unspecified; I10 Essential (primary) hypertension; F12.90 Cannabis use, unspecified, uncomplicated; Z98.890 Other specified postprocedural states

== ENCOUNTER 2024-12-10 17:27 | Emergency (ER) | payer MEDICAID ==
[~2024-12-10] VITALS: Ht 157.5 cm; Wt 55.3 kg
[~2024-12-10 17:27] MED LIST changes: +KETO2CRE4 TOP
[2024-12-10 17:40] VITALS: BP 133/117; PULSE 103; RESP 16; TEMP 97.9; O2SAT 96
--- NOTE | 2024-12-10 17:50 | ED.PDOC ---
History of Present Illness(SKN HPI Comments 29 year old female presents to the ED with chief complaint of rash. Patient reports that she has been experiencing a chronic, spreading rash to her bilateral arms, legs, face, eyelids, and back for the past month. Patient relays that her rash is itchy and irritating. Patient states she has history of Lupus and will follow up with her PCP for a referral to bible worker. Patient notes that she was seen in the ED 2 days ago for the same rash and the medication they prescribed has provided no relief in her symptoms. Patient denies any new skin care products or cleaning products. Patient denies any SOB, chest pain, dizziness, N/V, fever, or chills. Chief Complaint: Rash Time Seen by MD: 17:35 Primary Care Provider: UNKNOWN History of Present Illness: Nurses Notes, Medications, Allergies Allergies: Coded Allergies: NO KNOWN ALLERGIES (Unverified , 04/13/15) Home Meds Active Scripts Ketoconazole (Ketoconazole) 2 % Cre, 1 APPLIC TOP BID for 14 Days, #60 GRAMS 1 Refill Prov:ERNIE JUSTICE MD 12/08/24 Hydrocodone-Acetaminophen (Hydrocodone Bitartrate/AC 5-325 mg) 1 Tab Tab, 1 TAB PO Q8HP PRN for 7 Days, #21 TAB Prov:ADI MCKEON MD 07/23/24 Information Source: Patient Mode of Arrival: Ambulatory Severity: Moderate Timing: Months Duration: Since onset Prehospital treatment: None Location: Arm, Back, Eyes, Face, Leg Mechanism: Spontaneous Onset Developed: Pruritus, Rash Occurence: Outdoors Object: None Condition of Object: None Retained Foreign Body: No Wound Type: None Immunization Status of Animal: NA Tetanus: Unknown History of: None Past Medical History PAST MEDICAL HISTORY: HTN, Seizures Past Medical History (Other): Lupus Surgical History: ASSOCIATE DIRECTOR OF BIOSTATISTICS History: No Pertinent ASSOCIATE DIRECTOR OF BIOSTATISTICS History Family History Family History: Unknown Family History (Other): SLE Social History Smoker: Non-Smoker Alcohol: Occasionally Drugs: Marijuana Lives In: Home Constitutional: denies: chills, diaphoresis, fatigue, fever, malaise, sweats, weakness, others EENTM: denies: blurred vision, double vision, ear bleeding, ear discharge, ear drainage, ear pain, ear ringing, eye pain, eye redness, hearing loss, mouth pain, mouth swelling, nasal discharge, nose bleeding, nose congestion, nose pain, photophobia, tearing, throat pain, throat swelling, voice changes, others Respiratory: denies: cough, hemoptysis, orthopnea, SOB at rest, shortness of breath, SOB with excertion, stridor, wheezing, others Cardiovascular: denies: chest pain, dizzy spells, diaphoresis, Dyspnea on exertion, edema, irregular heart beat, left arm pain, lightheadedness, palpitations, PND, syncope, others Gastrointestinal: denies: abdomen distended, abdominal pain, blood streaked bowels, constipated, diarrhea, dysphagia, difficulty swallowing, hematemesis, melena, nausea, poor appetite, poor fluid intake, rectal bleeding, rectal pain, vomiting, others Genitourinary: denies: abnormal vagina bleeding, burning, dyspareunia, dysuria, flank pain, frequency, hematuria, incontinence, pain, , vagina discharge, urgency, others Neurological: denies: dizziness, fainting, headache, left sided numbness, left sided weakness, numbness, paresthesia, pre-existing deficit, right sided numbness, right sided weakness, seizure, speech problems, tingling, tremors, weakness, others Musculoskeletal: denies: back pain, gout, joint pain, joint swelling, muscle pain, muscle stiffness, neck pain, others Integumetry: reports: rash (To bilateral upper and lower extremities, back, and face); denies: bruises, change in color, change in hair/nails, dryness, laceration, lesions, lumps, wounds, others Physical Exam General Appearance: No Apparent Distress, Normal HEENT: Normal ENT Inspection, Pharynx Normal, TMs Normal Neck: Full Range of Motion, Non-Tender, Normal, Normal Inspection Respiratory: Chest Non-Tender, Lungs Clear, No Accessory Muscle Use, No Respiratory Distress, Normal Breath Sounds Cardiovascular: No Edema, No JVD, No Murmur, No Gallop, Normal Peripheral Pulses, Regular Rate/Rhythm Breast Exam: Deferred Gastrointestinal: No Organomegaly, Non Tender, No Pulsatile Mass, Normal Bowel Sounds, Soft Genitalia: Deferred Pelvic: Deferred Rectal: Deferred Extremities: No calf tenderness, Normal capillary refill, Normal inspection, Normal range of motion, Non-tender, No pedal edema Musculoskeletal : Apperance: Normal Neurologic: Alert, director technical II-XII nml as Tested, No Motor Deficits, Normal Affect, Normal Mood, No Sensory Deficits Cerebellar Function: Normal Reflexes: Normal Skin: Dry, Normal Color, Rash (Bilateral eyelids dry and mildly scaly. Rash noted to the posterior neck, patchy and erythematous, mildly raised. Circular lesion noted to the right elbow on the dorsal aspect, mildly raised and crusty. macular erythematous rash to bilateral elbow creases. Rash to the bilateral lower inner thighs, mildly circular and raised.), Warm Lymphatic: No Adenopathy Was a procedure done? Was a procedure done?: No Differential Diagnosis (INTG) Differential Diagnosis: Abrasion, Cellulitis, Insect Envenomation Differential Diagnosis: Abscess, Cellulitis, Contact Dermatitis, Drug Reaction, Erythema multiforme, Psoriasis X-Ray, Labs, Meds, VS Vital Signs Date Time Temp Pulse Resp B/P (MAP) Pulse Ox O2 Delivery O2 Flow Rate FiO2 12/10/24 17:40 97.9 103 16 133/117 (122) 96 97.9 X-Ray, Labs, Meds, VS Comment MDM: Patient with history as above presented with rash. History obtained from patient. Patient was nontoxic, stable, afebrile, ambulatory, no acute distress. Exam as above. Reviewed external records. All findings were discussed with the patient. Differential diagnosis considered. Overall presentation is consistent with nonspecific rash, appears to be psoriasis. Low suspicion for cellulitis, abscess, allergic reaction. Patient was seen in this ED two days ago and was prescribed ketoconazole for possible ringworm, however patient states that symptoms have not improved. Patient will be prescribed steroids due to history of lupus. patient states that she will follow up with Dermatology for further evaluation. Patient was reevaluated and vital signs were reviewed. Consideration was given for admission, but the patient was stable for outpatient management. Disposition: Discussed the need to follow up diagnostics, including incidental findings. Discharged the patient with instructions to obtain outpatient follow up in 1-2 days of today's symptoms and findings, with strict return precautions if patient develops new or worsening symptoms. This medical document was created using the [employer] system. Although this document has been carefully reviewed, there may still be some phonetic and typographical errors, which are due to imperfections of the software program, and do not reflect any compromise in the patient's medical care. Time of 1ST Reevaluation: 17:40 Reevaluation 1ST: Unchanged Patient Education/Counseling: Diagnosis, Treatment, Prognosis, Need For Follow Up Family Education/Counseling: No Family Present Departure 1 Departure Time of Disposition: 18:05 Impression: Primary Impression: Rash Disposition: 01 HOME / SELF CARE / HOMELESS Condition: Fair e-Prescriptions Hydrocortone (Hydrocortisone 2.5%) 1 Applic Ap 1 APPLIC TOP BID, #60 GRAMS Prov: RADHA ANDREW 12/10/24 Prednisone (Prednisone) 20 Mg Tab 40 MG PO DAILY for 5 Days, #10 TAB Prov: RADHA ANDREW 12/10/24 Critical Care Note Critical Care Time?: No Stability Stability form required: No Heart Score Heart Score: Heart Score Response (Comments) Value History N/A 0 EKG N/A 0 Age N/A 0 Risk Factors N/A 0 Troponin N/A 0 Total 0 I personally scribed for ADI MCKEON MD ([email or web address]) on 12/10/24 at 17:55. Electronically submitted by Jose Parkinson ([email or web address]). I personally scribed for ADI MCKEON MD ([email or web address]) on 12/10/24 at 17:56. Electronically submitted by Jose Parkinson ([email or web address]). RADHA ANDREW Dec 10, 2024 17:50 ADI MCKEON MD Dec 10, 2024 17:55
[2024-12-10] MEDS ORDERED: PRED20TA2 PO (18:06)
[2024-12-10] MEDS ORDERED: HYD25TP TOP (18:06)
== END 2024-12-10 18:28 | disposition home or self-care (01) ==
LOC: ER 17:27
DX: R21 Rash and other nonspecific skin eruption (principal); I10 Essential (primary) hypertension; F12.90 Cannabis use, unspecified, uncomplicated; Z98.890 Other specified postprocedural states

== ENCOUNTER 2024-12-12 18:10 | Emergency (ER) | payer MEDICAID ==
[~2024-12-12] VITALS: Ht 157.5 cm; Wt 56.8 kg
[~2024-12-12 18:10] MED LIST changes: +HYD25TP TOP; +PRED20TA2 PO
[2024-12-12 18:54] LABS: Anion Gap 17 (5-15); Carbon Dioxide 24 mmol/L (20-31)
[2024-12-12 18:59] LABS: BUN/Creatinine Ratio 8.1 (10.0-20.0)
[2024-12-12 19:00] LABS: Basophils # (auto) 0 10 ^3/uL (0-0.2); Eosinophils # (auto) 0 10 ^3/uL (0-0.8); Lymphocytes % (auto) 16.2 % (10.0-50.0); Monocytes # (auto) 0.5 10 ^3/uL (0-1.3)
[2024-12-12 19:01] LABS: Basophils % (auto) 0.2 % (0.0-2.0); Eosinophils % (auto) 0.2 % (0.0-7.0); Hematocrit 42.7 % (36.0-46.0); Hemoglobin 14.9 g/dL (12.2-16.2); Lymphocytes # (auto) 1.2 10 ^3/uL (0.4-5.4); Mean Corpuscular Hemoglobin 40.8 pg (28.0-32.0); Mean Corpuscular Hgb Conc. 34.8 g/dL (32.0-36.0); Mean Corpuscular Volume 117.4 fL (80.0-100.0); Monocytes % (auto) 6.7 % (0.0-12.0); Neutrophils # (auto) 5.5 10 ^3/uL (1.6-8.6); Neutrophils % (auto) 76.7 % (37.0-80.0); Nucleated Red Blood Cells % 0.1 %; Platelet Count (auto) 91 10^3/uL (140-450); Red Blood Cells 3.64 10^6/uL (4.0-5.20); Red Cell Distribution Width 13.8 % (11.8-14.3); White Blood Cell 7.1 10^3/uL (4.4-10.8)
[2024-12-12 19:14] LABS: Blood Urea Nitrogen 7 mg/dL (9-23); Calcium 10.7 mg/dL (8.7-10.4); Chloride 94 mmol/L (98-107); Glucose 151 mg/dL (74-106); Potassium 3.1 mmol/L (3.5-5.1); Sodium 135 mmol/L (136-145)
--- NOTE | 2024-12-12 20:15 | ED.PDOC ---
History of Present Illness(SKN HPI Comments 29 year old female presents to ER with complaints of rash x 1 month. Patient with PMH of lupus, HTN and seizures reports she's been experiencing a diffuse red itchy/burning rash to body x 1 month. States she has been seen in ER here on 2 different occasions for her rash and prescribed oral steroids and states her symptoms have since "gotten worse" with associated 8/10 diffuse body aches pain. Notes she's had similar symptoms in the past related to a lupus flare up. Patient presents to ER ambulatory on arrival, with steady gait, in distress. Denies fever, shortness of breath, chest pain, n/v, abdominal pain or any further symptoms/complaints Chief Complaint: Body Pain Time Seen by MD: 18:28 Primary Care Provider: UNKNOWN History of Present Illness: Nurses Notes, Medications, Allergies Allergies: Coded Allergies: NO KNOWN ALLERGIES (Unverified , 04/13/15) Home Meds Active Scripts Hydrocortone (Hydrocortisone 2.5%) 1 Applic Ap, 1 APPLIC TOP BID, #60 GRAMS Prov:RADHA ANDREW PAC 12/10/24 Prednisone (Prednisone) 20 Mg Tab, 40 MG PO DAILY for 5 Days, #10 TAB Prov:RADHA ANDREW PAC 12/10/24 Ketoconazole (Ketoconazole) 2 % Cre, 1 APPLIC TOP BID for 14 Days, #60 GRAMS 1 Refill Prov:ERNIE JUSTICE MD 12/08/24 Hydrocodone-Acetaminophen (Hydrocodone Bitartrate/AC 5-325 mg) 1 Tab Tab, 1 TAB PO Q8HP PRN for 7 Days, #21 TAB Prov:ADI MCKEON MD 07/23/24 Information Source: Patient Mode of Arrival: Ambulatory Past Medical History PAST MEDICAL HISTORY: HTN, Seizures Past Medical History (Other): lupus Surgical History: SCADA OPERATOR History: No Pertinent SCADA OPERATOR History Family History Family History: Unknown Family History (Other): SLE Social History Smoker: Non-Smoker Alcohol: Occasionally Drugs: Marijuana Lives In: Home Constitutional: reports: others (as stated in HPI) EENTM: denies: blurred vision, double vision, ear bleeding, ear discharge, ear drainage, ear pain, ear ringing, eye pain, eye redness, hearing loss, mouth pain, mouth swelling, nasal discharge, nose bleeding, nose congestion, nose pain, photophobia, tearing, throat pain, throat swelling, voice changes, others Respiratory: denies: cough, hemoptysis, orthopnea, SOB at rest, shortness of breath, SOB with excertion, stridor, wheezing, others Cardiovascular: denies: chest pain, dizzy spells, diaphoresis, Dyspnea on exertion, edema, irregular heart beat, left arm pain, lightheadedness, palpita tions, PND, syncope, others Gastrointestinal: denies: abdomen distended, abdominal pain, blood streaked rosibel wels, constipated, diarrhea, dysphagia, difficulty swallowing, hematemesis, melena, nausea, poor appetite, poor fluid intake, rectal bleeding, rectal pain, vomiting, others Genitourinary: denies: abnormal vagina bleeding, burning, dyspareunia, dysuria, flank pain, frequency, hematuria, incontinence, pain, , vagina discharge, urgency, others Neurological: denies: dizziness, fainting, headache, left sided numbness, left sided weakness, numbness, paresthesia, pre-existing deficit, right sided numbness, right sided weakness, seizure, speech problems, tingling, tremors, weakness, others Musculoskeletal: denies: back pain, gout, joint pain, joint swelling, muscle pain, muscle stiffness, neck pain, others Integumetry: reports: others (As stated in HPI) Allergic/Immunocompromised: reports: others ( STATED IN HPI) Hematologic/Lymphatic: denies: anemia, blood clots, easy bleeding, easy bruising, swollen glands, others Endocrine: denies: excessive hunger, excessive sweating, excessive thirst, excessive urination, flushing, intolerance to cold, intolerance to heat, unex plained weight gain, unexplained weight loss, others Psychiatric: denies: anxiety, bipolar disorder, depression, hopeless, panic disorder, schizophrenia, sleepless, suicidal, others Physical Exam General Appearance: No Apparent Distress HEENT: Normal ENT Inspection, PERRL/EOMI, Pharynx Normal, TMs Normal Neck: Full Range of Motion, Non-Tender, Normal Respiratory: Chest Non-Tender, Lungs Clear, No Accessory Muscle Use, No Respiratory Distress, Normal Breath Sounds Cardiovascular: No Murmur, No Gallop, Regular Rate/Rhythm Breast Exam: Deferred Gastrointestinal: NOT DONE Genitalia: Deferred Pelvic: Deferred Rectal: Deferred Extremities: Normal capillary refill, Normal range of motion Neurologic: Alert, director of distribution II-XII nml as Tested, No Motor Deficits, Normal Affect, Normal Mood, No Sensory Deficits Cerebellar Function: Normal Reflexes: Normal Skin: Dry, Warm, Other (DIFFUSE URTICARIA NOTED WITHOUT ANY SIGNS OF ANGIOEDEMA. NO MALAR RASH NOTED) Peripheral Pulses: 2+ Radial (R), 2+ Radial (L), 2+ Brachial (R), 2+ Brachial (L) Lymphatic: No Adenopathy Was a procedure done? Was a procedure done?: No Sedation Sedation?: No Differential Diagnosis (INTG) Differential Diagnosis: Cellulitis Differential Diagnosis: Drug Reaction, Erythema multiforme Differential Diagnosis: Other (Sepsis) X-Ray, Labs, Meds, VS Vital Signs Date Time Temp Pulse Resp B/P (MAP) Pulse Ox O2 Delivery O2 Flow Rate FiO2 12/12/24 21:33 98.2 103 14 125/92 (103) 98 98.2 12/12/24 20:00 Room Air* 0 21 12/12/24 20:00 98.4 109 17 137/99 (112) 96 98.4 12/12/24 18:19 98.4 109 17 144/112 (123) 96 98.4 12/12/24 18:18 Room Air* 0 21 Lab Test 12/12/24 22:20 12/12/24 21:11 12/12/24 20:22 12/12/24 18:33 Range/Units Lactic Acid Level 3.9 *H 4.5 *H 0.4-2.0 mmol/L Urine Color Colorless Yellow Urine Clarity Clear Clear Urine pH 6.5 5.0-9.0 Urine Specific [place] 1.002 1.001-1.035 Urine Protein Negative Negative Urine Ketones Negative Negative Urine Blood 3+ H Negative /uL Urine Nitrite Negative Negative Urine Bilirubin Negative Negative Urine Urobilinogen Normal Negative mg/dL Urine Leukocyte Esterase Negative Negative /uL Urine RBC 11 0 - 4 /hpf Urine Microscopic WBC 1 0-5 /HPF Urine Squamous Epithelial Cells Few <5 /hpf Urine Bacteria Few H None Seen /hpf Urine Glucose Normal Normal mg/dL White Blood Count 7.1 4.4-10.8 10^3/uL Red Blood Count 3.64 L 4.0-5.20 10^6/uL Hemoglobin 14.9 12.2-16.2 g/dL Hematocrit 42.7 36.0-46.0 % Mean Corpuscular Volume 117.4 H 80.0-100.0 fL Mean Corpuscular Hemoglobin 40.8 H 28.0-32.0 pg Mean Corpuscular Hemoglobin Concent 34.8 32.0-36.0 g/dL Red Cell Distribution Width 13.8 11.8-14.3 % Platelet Count 91 L 140-450 10^3/uL Mean Platelet Volume 9.5 6.9-10.8 fL Neutrophils (%) (Auto) 76.7 37.0-80.0 % Lymphocytes (%) (Auto) 16.2 10.0-50.0 % Monocytes (%) (Auto) 6.7 0.0-12.0 % Eosinophils (%) (Auto) 0.2 0.0-7.0 % Basophils (%) (Auto) 0.2 0.0-2.0 % Neutrophils # (Auto) 5.5 1.6-8.6 10 ^3/uL Lymphocytes # (Auto) 1.2 0.4-5.4 10 ^3/uL Monocytes # (Auto) 0.5 0-1.3 10 ^3/uL Eosinophils # (Auto) 0 0-0.8 10 ^3/uL Basophils # (Auto) 0 0-0.2 10 ^3/uL Nucleated Red Blood Cells 0.1 % Erythrocyte Sedimentation Rate 13 0-20 mm/hr Sodium Level 135 L 136-145 mmol/L Potassium Level 3.1 L 3.5-5.1 mmol/L Chloride Level 94 L 98-107 mmol/L Carbon Dioxide Level 24 20-31 mmol/L Anion Gap 17 H 5-15 Blood Urea Nitrogen 7 L 9-23 mg/dL Creatinine 0.86 0.550-1.02 mg/dL Glomerular Filtration Rate Calc 93 >90 mL/min BUN/Creatinine Ratio 8.1 L 10.0-20.0 Serum Glucose 151 H 74-106 mg/dL Calcium Level 10.7 H 8.7-10.4 mg/dL C-Reactive Protein High Sensitivity 0.05 <1.0 mg/dL Current Medications Medications (Trade) Dose Ordered Sig/Shane Route Start Time Stop Time Status Last Admin Sodium Chloride 1,000 ml @ 1,000 mls/hr Q1H ONCE IV 12/12/24 21:15 12/12/24 22:14 DC 3/25/25 21:24 Sodium Chloride 1,000 ml @ 1,000 mls/hr Q1H ONCE IV 12/12/24 21:15 12/12/24 22:14 DC 12/12/24 21:24 Methylprednisolone Sodium Succinate (Solu Medrol) 125 mg ONCE ONCE IV 12/12/24 22:00 12/12/24 22:01 DC 12/12/24 22:28 Diphenhydramine HCl (Benadryl Injection) 25 mg ONCE ONCE IV 12/12/24 22:00 12/12/24 22:01 DC 12/12/24 22:28 CBC and BMP reviewed Lactic acid reviewed-4.5 Repeat lactic acid reviewed - 3.9 Urinalysis reviewed without any significant abnormalities ESR and CRP reviewed-normal Blood cultures ordered Hep-Lock IV ordered 2 L NS IV ordered Solu-medrol 125 mg IV ordered Benadryl 25 mg IV ordered Patient with PMH significant for lupus reports worsening itchy/burning diffuse body rash after taking oral steroids with current lactic aid 4.5 Patient requires admission for need for IV steroids and IV fluids Patient stated she would like to sign out against medical advice Several attempts were made to convince patient to stay for further evaluation/treatment without success Risks of partial/permanent disability, sepsis, limb loss and risk of discussed signging out AMA. Patient alert and oriented x4 and verbalized full understanding of sign out AMA Patient signed out of ER against medical advice Time of 1ST Reevaluation: 20:12 Reevaluation 1ST: N/A Time of 2ND Reevaluation: 23:44 Reevaluation 2ND: Improved Patient Education/Counseling: Diagnosis, Treatment, Prognosis, Need For Follow Up Family Education/Counseling: No Family Present Departure 1 Departure Time of Disposition: 00:00 Impression: Primary Impression: Severe allergic reaction Qualified Codes: T78.40XA - Allergy, unspecified, initial encounter Additional Impressions: Thrombocytopenia Lactic acidosis Disposition: LEFT AGAINST MEDICAL ADVICE Condition: Critical Critical Care Note Critical Care Time?: No Stability Stability form required: No Heart Score Heart Score: Heart Score Response (Comments) Value History N/A 0 EKG N/A 0 Age N/A 0 Risk Factors N/A 0 Troponin N/A 0 Total 0 POLLY AGUILAR Dec 12, 2024 20:15
[2024-12-12 21:04] LABS: Lactic Acid w/Reflex 4.5 mmol/L (0.4-2.0)
[2024-12-12 21:07] LABS: Erythrocyte Sedimentation Rate 13 mm/hr (0-20)
[2024-12-12 21:20] LABS: Urine Bacteria FEW /hpf (None Seen); Urine Blood 3+ /uL (Negative); Urine Clarity Clear (Clear); Urine Color Colorless (Yellow); Urine Protein, UAD Negative (Negative); Urine Specific Gravity 1.002 (1.001-1.035); Urine Squamous Epithelial Cell FEW /hpf (<5); Urine Urobilinogen Normal (Negative); Urine WBC 1 /HPF (0-5); Urine pH 6.5 (5.0-9.0)
[2024-12-12] MEDS: SODIUM CHLORIDE 0.9% 1,000 ML IV ONE ×2 (21:24)
[2024-12-12 21:33] VITALS: BP 125/92; PULSE 103; RESP 14; TEMP 98.2; O2SAT 98
[2024-12-12] MEDS: diphenhdrAMINE HCL 50 MG/1 ML VL IV ONE (22:28)
[2024-12-12] MEDS: methylPREDNISolone SOD SUCC 125 MG/2 ML VL IV ONE (22:28)
== END 2024-12-13 03:35 | disposition left against medical advice (07) ==
LOC: ER 18:39
DX: T78.40XA Allergy, unspecified, initial encounter (principal); D69.6 Thrombocytopenia, unspecified; E87.20 Acidosis, unspecified; I10 Essential (primary) hypertension; Z79.52 Long term (current) use of systemic steroids; Z79.899 Other long term (current) drug therapy; X58.XXXA Exposure to other specified factors, initial encounter
CPT/HCPCS: 36415; 80048; 81001; 83605; 85025; 85652; 86141; 87040; 96361; 96374; 96375; 99284; J1200; J2919; J7030

== ENCOUNTER 2025-02-14 08:59 | Emergency (ER) | payer MEDICAID ==
[~2025-02-14] VITALS: Ht 157.5 cm; Wt 55.1 kg
[2025-02-14 09:22] VITALS: BP 127/92; PULSE 93; RESP 16; TEMP 98.7; O2SAT 96
== END 2025-02-14 11:58 | disposition left against medical advice (07) ==
LOC: ER 08:59
DX: R07.81 Pleurodynia (principal); Z53.21 Procedure and treatment not carried out due to patient leaving prior to being seen by health care provider